=== PATIENT | female | born 2000 | race Hispanic/Latino ===

== ENCOUNTER 2020-07-05 15:33 | Emergency (ER) | payer BC ==
[2020-07-05] MEDS ORDERED: IBUPROFEN 400 MG TAB ONE (16:06)
[2020-07-05] MEDS ORDERED: IBUPROFEN 200 MG TAB PO ONE (16:06)
[2020-07-05 18:34] LABS: Absolute Lymphocytes (CBC) 0.8 K/uL (0.7-4.9); Basophils % 0.4 % (0-1.3); Hematocrit 42.6 % (36.0-45.0); Lymphocytes % 17.5 % (15.3-44.8)
[2020-07-05 18:48] LABS: Albumin 3.8 g/dL (3.4-5.0); Bilirubin Direct 0.3 mg/dL (0-0.2); Bilirubin Total 0.8 mg/dL (0.2-1.0); Potassium 4.1 mmol/L (3.5-5.1); Protein, Total 8.2 g/dL (6.4-8.2)
--- NOTE | 2020-07-05 20:20 | RAD REPORT ---
EXAM DESCRIPTION: US - Transvaginal Study Probe - 07/05/2020 7:36 pm CLINICAL HISTORY: pelvic pain COMPARISON: Pelvis Complete dated 07/05/2020 TECHNIQUE: Endovaginal and transabdominal sonography performed. FINDINGS: Transabdominal and endovaginal sonographic evaluation performed. Findings are incorporated into a single report under the transabdominal examination. IMPRESSION: Please see full findings detailed on the transabdominal study.
--- NOTE | 2020-07-05 20:20 | RAD REPORT ---
EXAM DESCRIPTION: US - Pelvis Complete - 07/05/2020 7:36 pm CLINICAL HISTORY: pelvic pain COMPARISON: Transvaginal Study Probe dated 07/05/2020 TECHNIQUE: Endovaginal and transabdominal sonography studies were performed. Findings are incorporat ed into this single report. FINDINGS: Thickened endometrial stripe is present at 13 mm. This is homogeneous echogenicity with no mass, polyp or focal abnormality seen. The endometrium-myometrium interface is preserved. Uterus is approximately 8.4 x 3.6 x 5.5 cm. No myometrial mass identified. Nabothian cysts are present. No bloo d or fluid seen in the cul de sac. Both ovaries are identifiable. Blood flow is demonstrated in the bilateral ovarian stroma. An 8 centi meter thin-walled cystic mass is present in pelvis near the superior margin of the uterus. This is no t clearly ovarian in origin but may represent a paraovarian cyst. IMPRESSION: Large 8 centimeter thin-walled anechoic cyst probably para ovarian in etiology. Doppler evaluation was able to demonstrate blood flow within each ovary. Thickened endometrium with no endometrial mass or polyp identifiable.
--- NOTE | 2020-07-05 20:35 | EDPHYS ---
Physician Documentation [facility] Name: Renuka Weiner Age: 19 yrs Sex: Female : 2000 Arrival Date: 07/05/2020 Time: 15:37 Bed 24 Private MD: ED Physician Norma Falcon HPI: 07/05 18:08 This 19 yrs old Female presents to ER via Ambulatory with complaints of Groin jmm Pain, Diarrhea, Breathing Difficulty. 18:08 The patient presents with pelvis pain. Onset: The symptoms/episode began/occurred jmm gradually, today. Modifying factors: The symptoms are alleviated by nothing, the symptoms are aggravated by nothing. Associated signs and symptoms: Pertinent positives: diarrhea, fever. The patient has not experienced similar symptoms in the past. This is a 19 year old female with no known chronic medical conditions that presents to the ED with complaints of pelvic pain beginning today. patient states she is currently on her cycle. denies dysuria or vaginal discharge. . 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 - Social history:: Smoking status: Patient denies any tobacco usage or history of. ROS: 18:08 Constitutional: Negative for fever, chills, and weight loss, Cardiovascular: Negative jmm for chest pain, palpitations, and edema, Respiratory: Negative for shortness of breath, cough, wheezing, and pleuritic chest pain. 18:08 Abdomen/GI: Positive for diarrhea. 18:08 : Positive for pelvic pain. 18:08 All other systems are negative. Exam: 18:08 Constitutional: This is a well developed, well nourished patient who is awake, alert, jmm and in no acute distress. Head/Face: atraumatic. Eyes: EOMI, no conjunctival erythema appreciated ENT: Moist Mucus Membranes Neck: Trachea midline, Supple Chest/axilla: Normal chest wall appearance and motion. Cardiovascular: Regular rate and rhythm. No edema appreciated Respiratory: Normal respirations, no respiratory distress appreciated 18:08 Skin: General appearance color normal MS/ Extremity: Moves all extremities, no obvious deformities appreciated, no edema noted to the lower extremities Neuro: Awake and alert, normal gait Psych: Behavior is normal, Mood is normal, Patient is cooperative and pleasant 18:08 Abdomen/GI: Inspection: abdomen appears normal, Bowel sounds: normal, Palpation: soft, mild abdominal tenderness, in the suprapubic area. Vital Signs: 15:43 BP 137 / 74; Pulse 120; Resp 18; Temp 102.1; Pulse Ox 96% on R/A; Weight 117.93 kg; ll1 Height 5 ft. 2 in. (157.48 cm); Pain 3/10; 18:01 Pulse 112; Resp 18; Temp 100.2; Pulse Ox 95% on R/A; ll1 20:56 BP 128 / 74; Pulse 100; Resp 16; Pulse Ox 98% on R/A; iw 15:43 Body Mass Index 47.55 (117.93 kg, 157.48 cm) ll1 MDM: 18:07 Patient medically screened. [facility] 20:32 Data reviewed: vital signs, nurses notes. Counseling: I had a detailed discussion with niecy the patient and/or guardian regarding: the historical points, exam findings, and any diagnostic results supporting the discharge/admit diagnosis, lab results, radiology results, the need for outpatient follow up, to return to the emergency department if symptoms worsen or persist or if there are any questions or concerns that arise at home. ED course: Patient is alert and non toxic in appearance in the ED. US reveals a large ovarian cyst. There is normal blood flow. Patient is encouraged to follow up with obgyn for further care. Patient is otherwise given strict return precautions. patient understood and agrees with the plan of care. . 07/05 18:07 Order name: Basic Metabolic Panel; Complete Time: 18:49 [facility] 07/05 18:07 Order name: CBC with Diff; Complete Time: 18:37 [facility] 07/05 18:07 Order name: Hepatic Function; Complete Time: 18:49 [facility] 07/05 18:07 Order name: Lipase; Complete Time: 18:49 [facility] 07/05 18:07 Order name: IV Saline Lock; Complete Time: 18:32 [facility] 07/05 18:07 Order name: Labs collected and sent; Complete Time: 18:32 [facility] 07/05 18:07 Order name: Urine Dipstick-Ancillary (obtain specimen); Complete Time: 20:24 [facility] 07/05 18:07 Order name: Urine Test (obtain specimen); Complete Time: 20:24 [facility] 07/05 18:08 Order name: US Pelvis Complete; Complete Time: 20:29 [facility] 07/05 18:45 Order name: Transvaginal Study (probe); Complete Time: 20:29 [facility] 07/05 20:06 Order name: Urine Dipstick--Ancillary (enter results) [facility] 07/05 20:06 Order name: Urine --Ancillary (enter results) [facility] 07/05 20:06 Order name: Urine Dipstick-Ancillary EDMS 07/05 20:06 Order name: Urine --Ancillary EDMS Administered Medications: 15:53 Drug: Motrin 600 mg Route: PO; ll1 19:00 Follow up: Response: No adverse reaction iw Disposition: 07/05/20 20:34 Discharged to Home. Impression: Other ovarian cysts. - Condition is Stable. - Discharge Instructions: Ovarian Cyst. - Medication Reconciliation Form, Thank You Letter, Antibiotic Education, Prescription Opioid Use form. - Follow up: Private Physician; When: 2 - 3 days; Reason: Recheck today's complaints, Continuance of care, Re-evaluation by your physician. Addendum: 07/28/2020 02:10 Co-signature as Attending Physician, Norma Falcon MD. m a2 Signatures: Dispatcher [employer] EDMS Good Griffith PA PA jmm Williams, Irene, RN RN Norma Falcon MD MD ma2 Kailey Carlos RN RN 1 Corrections: (The following items were deleted from the chart) 07/05 20:57 20:34 07/05/2020 20:34 Discharged to Home. Impression: Other ovarian cysts. Condition iw is Stable. Forms are Medication Reconciliation Form, Thank You Letter, Antibiotic Education, Prescription Opioid Use. Follow up: Private Physician; When: 2 - 3 days; Reason: Recheck today's complaints, Continuance of care, Re-evaluation by your physician. [facility]
--- NOTE | 2020-07-05 20:35 | ER ---
Nurse's Notes [facility] Name: Renuka Weiner Age: 19 yrs Sex: Female : 2000 Arrival Date: 07/05/2020 Time: 15:37 Bed 24 Private MD: Diagnosis: Other ovarian cysts Presentation: 07/05 15:43 Chief complaint: Patient states: Covid positive since 05/01. SOB with exertion, burning ll1 to airways with cold air, pelvic pain with diarrhea for 1 day. + fever at home, no appetite. Coronavirus screen: Client denies travel out of the [place] in the last 14 days. congestion, cough unrelated to allergies, diarrhea, difficulty breathing, fatigue, fever, headache, muscle pain, nausea, shortness of breath, loss of taste or smell, Client presents with at least one sign or symptom that may indicate coronavirus-19. Standard/surgical mask placed on the client. Ebola Screen: Patient denies travel to an Ebola-affected area in the 21 days before illness onset. Initial Sepsis Screen: Does the patient meet any 2 criteria? Temp <36.0*C (96.8*F)) or > 38.3*C (100.9*F). HR > 90 bpm. Yes Does the patient have a suspected source of infection? Yes: Productive cough/pneumonia. Risk Assessment: Do you want to hurt yourself or someone else? Patient reports no desire to harm self or others. Onset of symptoms was June 29, 2020. 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 - Social history:: Smoking status: Patient denies any tobacco usage or history of. Screenin:56 Abuse screen: Denies threats or abuse. Denies injuries from another. Nutritional iw screening: No deficits noted. Tuberculosis screening: No symptoms or risk factors identified. Fall Risk None identified. Assessment: 18:33 General: Appears in no apparent distress. comfortable, Behavior is calm, cooperative. ec1 Pain: Complains of pain in suprapubic area. Neuro: Level of Consciousness is awake, alert, obeys commands. Cardiovascular: Patient's skin is warm and dry. Respiratory: Airway is patent Respiratory effort is even, unlabored. GI: Reports nausea. : Reports pain in suprapubic area vaginal bleeding that is Denies discharge. EENT: No signs and/or symptoms were reported regarding the EENT system. Derm: No signs and/or symptoms reported regarding the dermatologic system. Musculoskeletal: No signs and/or symptoms reported regarding the musculoskeletal system. 18:39 Reassessment: US tech at bedside performing US. ec1 Vital Signs: 15:43 BP 137 / 74; Pulse 120; Resp 18; Temp 102.1; Pulse Ox 96% on R/A; Weight 117.93 kg; ll1 Height 5 ft. 2 in. (157.48 cm); Pain 3/10; 18:01 Pulse 112; Resp 18; Temp 100.2; Pulse Ox 95% on R/A; ll1 20:56 BP 128 / 74; Pulse 100; Resp 16; Pulse Ox 98% on R/A; iw 15:43 Body Mass Index 47.55 (117.93 kg, 157.48 cm) ll1 ED Course: 15:37 Patient arrived in ED. rg4 15:47 Triage completed. ll1 15:48 Arm band placed on. ll1 17:56 Good Griffith PA is PHCP. jmm 17:56 Norma Falcon MD is Attending Physician. [facility] 17:59 Bed in low position. Call light in reach. Side rails up X 1. Warm blanket given. Verbal jp3 reassurance given. Pulse ox on. NIBP on. 18:00 Rosamaria Cool, RN is Primary Nurse. ec1 18:00 Patient maintains SpO2 saturation greater than 95% on room air. jp3 19:09 Primary Nurse role handed off by Rosamaria Cool RN iw 19:09 Elaine Melton RN is Primary Nurse. iw 19:09 Report given to Elaine Zuñiga RN. ec1 19:36 US Pelvis Complete In Process Unspecified. EDMS 19:36 Transvaginal Study (probe) In Process Unspecified. EDMS 20:56 No provider procedures requiring assistance completed. IV discontinued, intact, iw bleeding controlled, No redness/swelling at site. Pressure dressing applied. Administered Medications: 15:53 Drug: Motrin 600 mg Route: PO; ll1 19:00 Follow up: Response: No adverse reaction iw Outcome: 20:34 Discharge ordered by . niecy 20:56 Discharged to home ambulatory. iw 20:56 Condition: good 20:56 Discharge instructions given to patient, Instructed on discharge instructions, follow up and referral plans. Demonstrated understanding of instructions, follow-up care. 20:57 Patient left the ED. iw Signatures: Dispatcher [employer] EDMS Good Griffith PA PA jmm Williams, Irene, RN RN iw Yee Cannon rg4 Isaac Almaraz jp3 Kailey Carlos RN RN ll1 Rosamaria Cool RN RN ec1
[2020-07-05 21:21] VITALS: TEMP 100.2
[2020-07-05 21:23] VITALS: BP 128/74; O2SAT 98
[2020-07-05 22:44] LABS: Urine Blood 3+ (NEG); Urine Glucose NEGATIVE (NEG); Urine Protein 2+ (NEG); Urine Specific Gravity >1.030 (1.005-1.030); Urine pH 5.5 (5.0-7.0)
== END 2020-07-05 20:57 | disposition home or self-care (01) ==
LOC: ER 15:33
DX: N83.209 Unspecified ovarian cyst, unspecified side (principal)
CPT/HCPCS: 36415; 76830; 76856; 80048; 80076; 81003; 81025; 83690; 85025; 99284

== ENCOUNTER 2020-07-09 00:43 | Inpatient (IN) | payer BC ==
--- OUTSIDE RECORDS SUMMARY | 2020-07-09 00:45 | XMS REPORT | Continuity of Care Document ---
:2000 Author Organization [facility] t Address [address] [place] [address] Care Team Providers Name Role Phone Provider, Urgent Care Attending Clinician Unavailable Problems This patient has no known problems. Allergies, Adverse Reactions, Alerts This patient has no known allergies or adverse reactions. Medications This patient has no known medications. Procedures This patient has no known procedures. Encounters Start End Encounter Admission Attending Care Care Encounter Source Date/Time Date/Time Type Type Clinicians Facility Department ID 2020-07-02 2020-07-02 Urgent Provider, [facility] [id number] 09:39:12 09:59:12 [facility] [id number] [facility] [id number] Vicky [id number] [address] Results This patient has no known results.
[2020-07-09] MEDS ORDERED: ACETAMINOPHEN 500 MG TAB ONE (01:34)
[2020-07-09] MEDS ORDERED: NA CHLORIDE 0.9% 2,000 ML ONE (01:34)
[2020-07-09] MEDS ORDERED: ALBUTEROL INHALER 60 PUFF/8 GM IH ONE (01:38)
[2020-07-09 01:39] LABS: Arterial Blood Carboxyhemoglob 1.4 % (0-1.5); Blood Gas Oxyhemoglobin 91.1 % (94-97); Blood O2 Saturation 93.2 % (92-98.5)
[2020-07-09 01:44] LABS: Absolute Lymphocytes (CBC) 1.2 K/uL (0.7-4.9); Basophils % 0.3 % (0-1.3); Hematocrit 40.5 % (36.0-45.0); Lymphocytes % 16.9 % (15.3-44.8); MPV 9.2 fL (7.6-11.3); RBC Red Blood Cell Count 4.56 M/uL (3.86-4.86)
[2020-07-09 01:48] LABS: Protime INR 1.25
[2020-07-09] MEDS ORDERED: dexAMETHasone 10 MG/ML VIAL ONE (01:50)
[2020-07-09 03:37] LABS: ALT/SGPT 54 U/L (12-78); AST/SGOT 63 U/L (15-37); Albumin 3.3 g/dL (3.4-5.0); Alkaline Phosphatase 37 U/L (45-117); BUN Blood Urea Nitrogen 31 mg/dL (7-18); Bicarbonate 25 mmol/L (21-32); Bilirubin Direct 0.3 mg/dL (0-0.2); Bilirubin Total 0.6 mg/dL (0.2-1.0); Glucose Level 101 mg/dL (74-106); Potassium 4.4 mmol/L (3.5-5.1); Protein, Total 7.9 g/dL (6.4-8.2); Sodium Level 140 mmol/L (136-145); Troponin (Emerg Dept Use Only) < 0.02 ng/mL (0.0-0.045)
[2020-07-09 03:38] LABS: Magnesium 2.5 mg/dL (1.8-2.4); NT PRO-BNP < 5 pg/mL (<125)
--- NOTE | 2020-07-09 03:51 | ER ---
Nurse's Notes [facility] Name: Renuka Weiner Age: 19 yrs Sex: Female : 2000 Arrival Date: 07/09/2020 Time: 00:43 Bed 8 Private MD: Diagnosis: COVID Pneumonia;Hypoxia Presentation: 07/09 01:00 Chief complaint: Patient states: Reports shortness of breath tonight, states oximeter lp1 at home reading 70%; Diagnosed COVID + on 07/02/20; began having symptoms on 06/29/20;. Coronavirus screen: Client reports previous positive COVID test result. Date of collection: July 02, 2020. 01:00 Method Of Arrival: Wheelchair lp1 01:00 Ebola Screen: No symptoms or risks identified at this time. Initial Sepsis Screen: Does lp1 the patient meet any 2 criteria? RR > 20 per min. Temp <36.0*C (96.8*F)) or > 38.3*C (100.9*F). HR > 90 bpm. Yes Does the patient have a suspected source of infection? Yes: Productive cough/pneumonia. Risk Assessment: Do you want to hurt yourself or someone else? Patient reports no desire to harm self or others. Onset of symptoms was July 09, 2020. 01:00 Acuity: LIZABETH 2 lp1 Triage Assessment: 01:42 General: Appears. mg2 01:44 General: Behavior is calm, cooperative. 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 - Social history:: Smoking status: Patient denies any tobacco usage or history of. Screenin:42 Abuse screen: Denies threats or abuse. Denies injuries from another. Nutritional mg2 screening: No deficits noted. Tuberculosis screening: No symptoms or risk factors identified. Fall Risk IV access (20 points). Assessment: 01:12 General: Appears mild resp distress. Pain: Denies pain. Neuro: Level of Consciousness mg2 is awake, alert, obeys commands, Oriented to person, place, time, situation. Cardiovascular: Capillary refill < 3 seconds Patient's skin is warm and dry. Respiratory: Airway is patent Respiratory effort is even, Respiratory pattern is regular, symmetrical, tachypnea. GI: No signs and/or symptoms were reported involving the gastrointestinal system. : No signs and/or symptoms were reported regarding the genitourinary system. EENT: No signs and/or symptoms were reported regarding the EENT system. Derm: Skin is intact, is healthy with good turgor, Skin is pink, warm \T\ dry. normal. Musculoskeletal: Circulation, motion, and sensation intact. Capillary refill < 3 seconds. 01:15 Reassessment: Patient became short of breath while transferring from to [facility] respiratory distress noted, O2 at 59%; Place on NRB at 15L, O2 improvement to 95%, labored breathing improved; RT called for BiPAP per Dr. Dwyer. 01:45 Reassessment: refused for BIPAP, feel anxious. removed BIPAP as per patient, ED rr5 provider aware. 02:39 Reassessment: Patient appears in no apparent distress at this time. Patient is alert, rr5 oriented x 3, equal unlabored respirations, skin warm/dry/pink. Patient states feeling better. Patient states symptoms have improved. 03:54 Reassessment: patient informed by the provider about the plan for admission and she mg2 agreed. 03:56 Reassessment: she had covid test positive done at [facility] last Jul 02, 2020. mg2 04:10 Reassessment: Patient appears in no apparent distress at this time. Patient is alert, rr5 oriented x 3, equal unlabored respirations, skin warm/dry/pink. hospitalist at bedside examining the patient. 05:09 Reassessment: Patient appears in no apparent distress at this time. Patient is alert, rr5 oriented x 3, equal unlabored respirations, skin warm/dry/pink. Patient states symptoms have improved. Vital Signs: 01:00 BP 122 / 71; Pulse 120; Resp 22; Temp 103.1; Pulse Ox 72% on R/A; Weight 117.93 kg (R); lp1 Height 5 ft. 2 in. (157.48 cm); Pain 0/10; 01:10 Pulse Ox 89% on 3 lpm NC; lp1 02:36 BP 118 / 73; Pulse 112; Resp 18; Temp 100; Pulse Ox 98% on CPAP; mg2 03:50 BP 109 / 72; Pulse 96; Resp 18; Temp 99.4; Pulse Ox 97% on 50% CPAP; mg2 05:09 BP 132 / 72; Pulse 100; Resp 20; Temp 98; Pulse Ox 96% on CPAP; rr5 01:00 Body Mass Index 47.55 (117.93 kg, 157.48 cm) lp1 ED Course: 00:43 Patient arrived in ED. bp1 01:15 Patient has correct armband on for positive identification. Placed in gown. Bed in low lp1 position. Call light in reach. bander on. Pulse ox on. NIBP on. Patient placed on droplet and contact precautions with eye protection. 01:17 Johnathon Dwyer MD is Attending Physician. mh7 01:25 First set of blood cultures drawn EKG done, by ED staff, reviewed by Johnathon Dwyer MD. mg2 Inserted saline lock: 20 gauge in left upper arm, using aseptic technique. Blood collected. 01:27 Triage completed. lp1 01:28 Arm band placed on. lp1 01:30 Genaro Womack, FLOWER is Primary Nurse. mg2 01:41 No provider procedures requiring assistance completed. mg2 01:48 XRAY Chest (1 view) In Process Unspecified. EDMS 03:49 Kennedy Perez DO is Hospitalizing Provider. mh7 03:55 Patient admitted, IV remains in place. mg2 07:21 Primary Nurse role handed off by Genaro Womack, FLOWER bp 07:21 Terry Tidwell, FLOWER is Primary Nurse. bp Administered Medications: 01:20 Drug: Tylenol 1000 mg Route: PO; lp1 02:49 Follow up: Response: No adverse reaction mg2 01:20 Drug: NS 0.9% 1000 ml Route: IV; Rate: 1000 ml; Site: left antecubital; lp1 02:50 Follow up: Response: No adverse reaction; IV Status: Completed infusion; IV Intake: mg2 1000ml 01:30 Drug: Albuterol HFA Inhaler 2 puffs Route: Inhalation; mg2 01:31 Drug: Decadron - Dexamethasone 6 mg Route: IVP; Site: left upper arm; mg2 02:30 Follow up: Response: No adverse reaction mg2 02:20 Not Given (Hemodynamic Parameters): NS 0.9% 1000 ml IV at 1000 ml once mg2 03:49 Drug: Rocephin - (cefTRIAXone) 1 grams Route: IVPB; Infused Over: 30 mins; Site: left mg2 upper arm; 04:00 Follow up: Response: No adverse reaction; IV Status: Completed infusion rr5 03:49 Drug: Zithromax 500 mg Route: IVPB; Infused Over: 1 hrs; Site: left upper arm; mg2 04:40 Follow up: Response: No adverse reaction; IV Status: Completed infusion; IV Intake: rr5 250ml Intake: 02:50 IV: 1000ml; Total: 1000ml. mg2 04:40 IV: 250ml; Total: 1250ml. rr5 Outcome: 03:50 Decision to Hospitalize by Provider. 7 05:02 Admitted to ER Hold. Please see [facility] for further documentation. mg2 05:02 Condition: stable 05:02 Instructed on the need for admit, Demonstrated understanding of instructions. 08:34 Patient left the ED. bp Signatures: Dispatcher [employer] EDMS Geneva Burrows RN RN lp1 Terry Tidwell RN RN bp Genaro Womack RN RN mg2 Anthony Garg RN RN rr5 Melania Dee Maurice, MD MD 7
--- NOTE | 2020-07-09 03:51 | EDPHYS ---
Physician Documentation [facility] Name: Renuka Weiner Age: 19 yrs Sex: Female : 2000 Arrival Date: 07/09/2020 Time: 00:43 Bed 8 Private MD: ED Physician Johnathon Dwyer HPI: 07/09 01:30 This 19 yrs old Female presents to ER via Wheelchair with complaints of Low O2.mh7 01:30 The patient has shortness of breath at rest, with light activity. Onset: The mh7 symptoms/episode began/occurred 3 day(s) ago. Duration: The symptoms are continuous, and are steadily getting worse. The patient's shortness of breath is aggravated by coughing, exertion, light activity. Associated signs and symptoms: Pertinent positives: non-productive cough, fever, Pertinent negatives: chest pain, productive cough, diaphoresis, dizziness, hemoptysis, loss of consciousness, nausea, numbness in extremities, visual changes, vomiting. Severity of symptoms: At their worst the symptoms were severe last night, in the emergency department the symptoms are unchanged. Positive COVID test 07/02/20. 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 - Social history:: Smoking status: Patient denies any tobacco usage or history of. ROS: 01:30 Eyes: Negative for injury, pain, redness, and discharge, ENT: Negative for injury, mh7 pain, and discharge, Neck: Negative for injury, pain, and swelling, Cardiovascular: Negative for chest pain, palpitations, and edema, Abdomen/GI: Negative for abdominal pain, nausea, vomiting, diarrhea, and constipation, Back: Negative for injury and pain, : Negative for injury, bleeding, discharge, and swelling, MS/Extremity: Negative for injury and deformity, Skin: Negative for injury, rash, and discoloration, Neuro: Negative for headache, weakness, numbness, tingling, and seizure, Psych: Negative for depression, anxiety, suicide ideation, homicidal ideation, and hallucinations, Allergy/Immunology: Negative for hives, rash, and allergies, Endocrine: Negative for neck swelling, polydipsia, polyuria, polyphagia, and marked weight changes, Hematologic/Lymphatic: Negative for swollen nodes, abnormal bleeding, and unusual bruising. Exam: 01:30 Head/Face: Normocephalic, atraumatic. Eyes: Pupils equal round and reactive to light, mh7 extra-ocular motions intact. Lids and lashes normal. Conjunctiva and sclera are non-icteric and not injected. Cornea within normal limits. Periorbital areas with no swelling, redness, or edema. Neck: Trachea midline, no thyromegaly or masses palpated, and no cervical lymphadenopathy. Supple, full range of motion without nuchal rigidity, or vertebral point tenderness. No Meningismus. Chest/axilla: Normal chest wall appearance and motion. Nontender with no deformity. No lesions are appreciated. 01:30 Abdomen/GI: Soft, non-tender, with normal bowel sounds. No distension or tympany. No guarding or rebound. No evidence of tenderness throughout. Back: No spinal tenderness. No costovertebral tenderness. Full range of motion. Skin: Warm, dry with normal turgor. Normal color with no rashes, no lesions, and no evidence of cellulitis. MS/ Extremity: Pulses equal, no cyanosis. Neurovascular intact. Full, normal range of motion. Neuro: Awake and alert, GCS 15, oriented to person, place, time, and situation. Cranial nerves II-XII grossly intact. Motor strength 5/5 in all extremities. Sensory grossly intact. Cerebellar exam normal. Normal gait. Psych: Awake, alert, with orientation to person, place and time. Behavior, mood, and affect are within normal limits. 01:30 Constitutional: The patient appears alert, awake, obviously ill. 01:30 Cardiovascular: Rate: tachycardic, Rhythm: regular, Pulses: no pulse deficits are appreciated, Heart sounds: normal, normal S1and S2, Edema: is not appreciated, JVD: is not appreciated. 01:30 Respiratory: mild respiratory distress is noted, Respirations: prolonged exhalation, that is mild, tachypnea, that is mild, Breath sounds: decreased breath sounds, that are mild, are located in both bases, rhonchi, that are mild, are scattered, Respiratory rate: 22 Vital Signs: 01:00 BP 122 / 71; Pulse 120; Resp 22; Temp 103.1; Pulse Ox 72% on R/A; Weight 117.93 kg (R); lp1 Height 5 ft. 2 in. (157.48 cm); Pain 0/10; 01:10 Pulse Ox 89% on 3 lpm NC; lp1 02:36 BP 118 / 73; Pulse 112; Resp 18; Temp 100; Pulse Ox 98% on CPAP; mg2 03:50 BP 109 / 72; Pulse 96; Resp 18; Temp 99.4; Pulse Ox 97% on 50% CPAP; mg2 05:09 BP 132 / 72; Pulse 100; Resp 20; Temp 98; Pulse Ox 96% on CPAP; rr5 01:00 Body Mass Index 47.55 (117.93 kg, 157.48 cm) lp1 MDM: 03:47 Differential diagnosis: Anemia Anxiety Reaction asthma, Bronchitis pneumonia, mh7 Pneumothorax Psychogenic pulmonary edema, reactive airway disease. Data reviewed: vital signs, nurses notes, lab test result(s), cardiac enzymes, CBC, electrolytes, EKG, radiologic studies, plain films. Data interpreted: Pulse oximetry: on BiPAP is 100 %. Interpretation: acceptable. Counseling: I had a detailed discussion with the patient and/or guardian regarding: the historical points, exam findings, and any diagnostic results supporting the discharge/admit diagnosis, lab results, radiology results, the need for further work-up and treatment in the hospital. 03:50 Patient medically screened. [facility] 07/09 01:19 Order name: Basic Metabolic Panel [facility] 07/09 01:19 Order name: CBC with Diff [facility] 07/09 01:19 Order name: LFT's [facility] 07/09 01:19 Order name: Magnesium [facility] 07/09 01:19 Order name: NT PRO-BNP; Complete Time: 03:42 [facility] 07/09 01:19 Order name: PT-INR; Complete Time: 01:57 [facility] 07/09 01:19 Order name: Troponin (emerg Dept Use Only); Complete Time: 03:42 [facility] 07/09 01:19 Order name: Arterial Blood Gas; Complete Time: 03:17 [facility] 07/09 01:19 Order name: Blood Culture Adult (2) [facility] 07/09 01:19 Order name: Lactate; Complete Time: 03:06 [facility] 07/09 01:19 Order name: Procalcitonin; Complete Time: 02:33 mh7 07/09 01:19 Order name: Basic Metabolic Panel; Complete Time: 03:42 EDMS 07/09 01:19 Order name: CBC with Automated Diff; Complete Time: 01:57 EDMS 07/09 01:19 Order name: Liver (Hepatic) Function; Complete Time: 03:42 EDMS 07/09 01:19 Order name: Magnesium; Complete Time: 03:42 EDMS 07/09 01:20 Order name: Test, Serum; Complete Time: 02:33 mh7 07/09 03:45 Order name: CRP la1 07/09 03:45 Order name: Ferritin la1 07/09 03:45 Order name: C-Reactive Protein; Complete Time: 04:48 EDMS 07/09 03:45 Order name: Ferritin; Complete Time: 04:48 EDMS 07/09 05:07 Order name: Urinalysis EDMS 07/09 05:07 Order name: Basic Metabolic Panel EDMS 07/09 05:07 Order name: Basic Metabolic Panel EDMS 07/09 05:07 Order name: Basic Metabolic Panel EDMS 07/09 05:07 Order name: Basic Metabolic Panel EDMS 07/09 05:07 Order name: Basic Metabolic Panel EDMS 07/09 05:07 Order name: CBC with Automated Diff EDMS 07/09 05:07 Order name: CBC with Automated Diff EDMS 07/09 05:07 Order name: CBC with Automated Diff EDMS 07/09 05:07 Order name: Magnesium EDMS 07/09 01:19 Order name: XRAY Chest (1 view) 7 07/09 01:19 Order name: EKG; Complete Time: 01:20 7 07/09 05:07 Order name: CONS Physician Consult EDMS 07/09 05:07 Order name: Regular EDMS 07/09 05:07 Order name: Magnesium EDMS 07/09 05:07 Order name: Magnesium EDMS 07/09 05:07 Order name: Magnesium EDMS 07/09 05:07 Order name: Magnesium EDMS 07/09 05:07 Order name: C-Reactive Protein EDMS 07/09 05:08 Order name: C-Reactive Protein EDMS 07/09 05:08 Order name: C-Reactive Protein EDMS 07/09 05:08 Order name: C-Reactive Protein EDMS 07/09 05:08 Order name: C-Reactive Protein EDMS 07/09 05:08 Order name: C-Reactive Protein EDMS 07/09 05:08 Order name: C-Reactive Protein EDMS 07/09 05:08 Order name: C-Reactive Protein EDMS 07/09 05:08 Order name: Ferritin EDMS 07/09 05:08 Order name: Ferritin EDMS 07/09 05:08 Order name: Ferritin EDMS 07/09 05:08 Order name: Ferritin EDMS 07/09 05:08 Order name: Ferritin EDMS 07/09 05:08 Order name: Ferritin EDMS 07/09 05:08 Order name: Ferritin EDMS 07/09 05:08 Order name: Ferritin EDMS 07/09 01:19 Order name: Cardiac monitoring; Complete Time: 01:30 mh7 07/09 01:19 Order name: EKG - Nurse/Tech; Complete Time: 01:30 mh7 07/09 01:19 Order name: IV Saline Lock; Complete Time: 01:30 mh7 07/09 01:19 Order name: Labs collected and sent; Complete Time: 01:30 mh7 07/09 01:19 Order name: O2 Per Protocol; Complete Time: 01:30 mh7 07/09 01:19 Order name: O2 Sat Monitoring; Complete Time: 01:30 mh7 Administered Medications: 01:20 Drug: Tylenol 1000 mg Route: PO; lp1 02:49 Follow up: Response: No adverse reaction mg2 01:20 Drug: NS 0.9% 1000 ml Route: IV; Rate: 1000 ml; Site: left antecubital; lp1 02:50 Follow up: Response: No adverse reaction; IV Status: Completed infusion; IV Intake: mg2 1000ml 01:30 Drug: Albuterol HFA Inhaler 2 puffs Route: Inhalation; mg2 01:31 Drug: Decadron - Dexamethasone 6 mg Route: IVP; Site: left upper arm; mg2 02:30 Follow up: Response: No adverse reaction mg2 02:20 Not Given (Hemodynamic Parameters): NS 0.9% 1000 ml IV at 1000 ml once mg2 03:49 Drug: Rocephin - (cefTRIAXone) 1 grams Route: IVPB; Infused Over: 30 mins; Site: left mg2 upper arm; 04:00 Follow up: Response: No adverse reaction; IV Status: Completed infusion rr5 03:49 Drug: Zithromax 500 mg Route: IVPB; Infused Over: 1 hrs; Site: left upper arm; mg2 04:40 Follow up: Response: No adverse reaction; IV Status: Completed infusion; IV Intake: rr5 250ml Disposition: 07/09/20 03:50 Hospitalization ordered by Kennedy Perez for Inpatient Admission. Preliminary diagnosis are COVID Pneumonia, Hypoxia. - Bed requested for Telemetry/MedSurg (Inpatient). - Status is Inpatient Admission. bp - Condition is Stable. - Problem is new. - Symptoms have improved. Signatures: [facility] Geneva Burrows, RN RN lp1 Mo Wright, CHROME TANNING DRUM OPERATOR-C CHROME TANNING DRUM OPERATOR-Cla1 Janeth Cannon RN RN cg Terry Tidwell RN RN bp Giuliana Barnard Michele, RN RN mg2 Johnathon Dwyer MD MD [facility] Anthony Garg RN rr5 Corrections: (The following items were deleted from the chart) 04:51 03:50 Hospitalization Ordered by Kennedy Perez DO for Inpatient Admission. Preliminary cg diagnosis is COVID Pneumonia; Hypoxia. Bed requested for Telemetry/MedSurg (Inpatient). Status is Inpatient Admission. Condition is Stable. Problem is new. Symptoms have improved. [facility] 05:07 01:45 BiPap ([employer] Only)+[id number] ordered. [facility] EDMS 07:54 04:51 07/09/2020 03:50 Hospitalization Ordered by Kennedy Perez DO for Inpatient eb Admission. Preliminary diagnosis is COVID Pneumonia; Hypoxia. Bed requested for [facility] ER HOLD. Status is Inpatient Admission. Condition is Stable. Problem is new. Symptoms have improved. 08:34 07:54 07/09/2020 03:50 Hospitalization Ordered by Kennedy Perez DO for Inpatient bp Admission. Preliminary diagnosis is COVID Pneumonia; Hypoxia. Bed requested for Telemetry/MedSurg (Inpatient). Status is Inpatient Admission. Condition is Stable. Problem is new. Symptoms have improved.
[2020-07-09] MEDS ORDERED: CEFTRIAXONE/SWI 1gm 1 GM/10 ML SYR ONE (03:57)
[2020-07-09] MEDS ORDERED: NA CHLORIDE 0.9% 250 ML ONE (03:57)
[2020-07-09] MEDS ORDERED: AZITHROMYCIN 500 MG INJ IVPB ONE (03:57)
[2020-07-09 04:24] LABS: C-Reactive Protein 75.8 mg/L (<3.00); Ferritin 710.2 ng/mL (8-388)
--- NOTE | 2020-07-09 05:03 | P.HP ---
Certification for Inpatient Patient admitted to: Inpatient With expected LOS: >2 Midnights Patient will require the following post-hospital care: None Practitioner: I am a practitioner with admitting privileges, knowledge of patient current condition, hospital course, and medical plan of care. Services: Services provided to patient in accordance with Admission requirements found in Title 42 Section 412.3 of the Code of Federal Regulations Patient History Date of Service: 07/09/20 Primary Care Provider: none Reason for admission: COVID pneumonia History of Present Illness: 19-year-old female with no significant chronic medical conditions presents emergency department for shortness of breath. Patient reports testing positive for Maxwell virus on July 02, 2020. Patient reports increasing shortness of breath over the course of the last 6 days. Patient reports rare saturations at home or in the 60s. Upon presentation to the emergency department patient's room air saturation 72%. Workup in the emergency department reveals maxwell virus pneumonia, mild acute kidney injury creatinine 1.33 GFR 51, ferritin 710 CRP 75.8. Pro calcitonin 0.29. ED provider wishes to admit for further evaluation and management. - Past Medical/Surgical History -: none -: none Psychosocial/ Personal History: Unemployed, lives with her family - Family History Family History: Reviewed- Non-Contributory - Social History Smoking Status: Never smoker Alcohol use: No CD- Drugs: No Caffeine use: Yes Place of Residence: Home Review of Systems 10-point ROS is otherwise unremarkable Respiratory: Cough, Dry, Shortness of Breath, SOB with Excertion, Pleuritic Pain Physical Examination - Physical Exam General: Alert, In no apparent distress HEENT: Atraumatic, PERRLA, Mucous membr. moist/pink, EOMI, Sclerae nonicteric Neck: Supple, 2+ carotid pulse no bruit, No LAD, Without JVD or thyroid ab normality Respiratory: Normal air movement, Diminished (Bilaterally) Cardiovascular: Regular rate/rhythm, Normal S1 S2 Gastrointestinal: Normal bowel sounds, No tenderness Musculoskeletal: No tenderness Integumentary: No rashes Neurological: Normal speech, Normal strength at 5/5 x4 extr, Normal tone, Normal affect - Studies Laboratory Data (last 24 hrs) 07/09/20 01:25: PT 14.4 H, INR 1.25 07/09/20 01:25: WBC 7.20 D, Hgb 13.3, Hct 40.5, Plt Count 256 D 07/09/20 01:25: Sodium 140, Potassium 4.4, BUN 31 H, Creatinine 1.33 H, Glucose 101, Magnesium 2.5 H, Total Bilirubin 0.6, AST 63 H, ALT 54, Alkaline Phosphatase 37 L Assessment and Plan - Plan Assessment Acute hypoxic respiratory failure secondary to COVID-19 pneumonia Acute kidney injury Obesity Plan Acute hypoxic respiratory failure secondary to COVID-19 pneumonia: Trend CRP, ferritin levels. Continue with supplemental oxygen as needed. Daily room air saturations. Continue with IV steroids, supplements. Patient considering ivermectin at this time. Anticipate hospitalization greater than 2 days. DVT prophylaxis with Lovenox 40 mg subcutaneous once daily. Pulmonology may prefer to increase this to full-dose anticoagulation. Acute kidney injury: Patient given 1 L normal saline bolus in the ER, continue with 1 bag of NS at 100 cc/hour. Chemistry. Nephrology consult as necessary. Likely prerenal/dehydration. Obesity: Discussed dietary and lifestyle changes. Discharge Plan: Home Plan to discharge in: Greater than 2 days - Advance Directives Does patient have a Living Will: No Does patient have a Durable POA for Healthcare: No - Code Status/Comfort Care Code Status Assessed: Yes (Full code) Critical Care: No Time Spent Managing Pts Care (In Minutes): 55
[2020-07-09] MEDS ORDERED: NA CHLORIDE 0.9% 1,000 ML IV SCH (05:06)
[2020-07-09] MEDS ORDERED: MELATONIN 5 MG TABLET PO PRN (05:06)
[2020-07-09] MEDS ORDERED: ONDANSETRON 4 MG/2 ML VIAL IV PRN (05:06)
[2020-07-09] MEDS ORDERED: BENZONATATE 100 MG CAP PO PRN (05:06)
[2020-07-09] MEDS ORDERED: HYDROCODONE/APAP 5/325 MG TAB PO PRN (05:06)
[2020-07-09] MEDS ORDERED: ACETAMINOPHEN 500 MG TAB PO PRN (05:06)
[2020-07-09 06:13] VITALS: BMI 47.5
[2020-07-09] MEDS: THIAMINE HCL 100 MG TABLET PO SCH (09:33)
[2020-07-09] MEDS: VITAMIN D 1000 UNIT TAB PO SCH (09:33)
[2020-07-09] MEDS: ENOXAPARIN 40 MG/0.4 ML SQ SCH (09:33)
[2020-07-09] MEDS: FAMOTIDINE 20 MG TAB PO SCH ×3 (09:33→21:25)
[2020-07-09] MEDS: ZINC SULFATE 220 MG CAP PO SCH (09:33)
[2020-07-09] MEDS: ASPIRIN EC 81 MG TAB PO SCH (09:33)
[2020-07-09] MEDS: ASCORBIC ACID 500 MG TABLET PO SCH ×4 (09:33→21:24)
[2020-07-09] MEDS ORDERED: INFLUENZA VACCINE (for 3y+) 0.5 ML DOSE IMVAC ONE (10:00)
[2020-07-09] MEDS ORDERED: MELATONIN 5 MG TABLET PO SCH (10:02)
--- NOTE | 2020-07-09 10:02 | P.PN ---
Subjective Date of Service: 07/09/20 Primary Care Provider: none Chief Complaint: COVID pneumonia Subjective: Other (Patient currently on BiPAP 50% FiO2. Patient does not appear in any distress.) Physical Examination - Vital Signs Temperature: 98 F Blood Pressure: 132/72 Pulse: 100 Respirations: 20 - Studies Laboratory Data (last 24 hrs) 07/09/20 01:25: PT 14.4 H, INR 1.25 07/09/20 01:25: WBC 7.20 D, Hgb 13.3, Hct 40.5, Plt Count 256 D 07/09/20 01:25: Sodium 140, Potassium 4.4, BUN 31 H, Creatinine 1.33 H, Glucose 101, Magnesium 2.5 H, Total Bilirubin 0.6, AST 63 H, ALT 54, Alkaline Phosphatase 37 L Assessment & Plan Discharge Plan: Home Plan to discharge in: 48 Hours Physician Review Additional Text: Initial chief complaint: 19-year-old female presents with shortness of breath and recent positive COVID 19 test. Patient found to have acute respiratory failure with hypoxia secondary to bilateral COVID 19 pneumonia. Physical exam: Patient alert, cooperative. No significant distress noted. Heart: Regular rhythm Lungs: Patient does not appear in any distress on BiPAP at 50% FiO2 Abdomen: No distention noted Extremities: Good range of motion to the upper lower extremities. No focal deficits noted. Impression: Acute respiratory failure with hypoxia secondary to bilateral COVID 19 pneumonia Acute renal injury likely mild dehydration Suspect underlying obstructive sleep apnea Obesity, BMI 47.5 Plan: Acute respiratory failure with hypoxia secondary to bilateral COVID 19 pneumonia: Pulmonology consulted. Continue IV Solu-Medrol. Continue vitamin supplementation. Currently on BiPAP at 50% of O2. Respiratory to wean off to nasal cannula. Encourage ambulation, incentive spirometer, and proning. Will arrange for home oxygen at discharge. Continue to monitor ferritin, CRP and lab. DVT prophylaxis in place. Continue aspirin. Anticipate improvement over the next 24-48 hr. I will turn the service over to the hospitalist team tomorrow. I will go plan of care with him. Acute renal injury likely mild dehydration: This appears mild. Encourage oral intake. Discontinue IV fluids. Recheck lab tomorrow. Suspect underlying obstructive sleep apnea: This may need to be further addressed as an outpatient. Await Pulmonology recommendations. Obesity, BMI 47.5: Address lifestyle modification education. Time Spent Managing Pts Care (In Minutes): 55
[2020-07-09] MEDS: METHYLPREDNISOLONE 40 MG INJ IV SCH ×3 (10:25→21:24)
--- NOTE | 2020-07-09 20:13 | RAD REPORT ---
EXAM DESCRIPTION: RAD - Chest Single View - 07/09/2020 1:48 am CLINICAL HISTORY: SOB COMPARISON: None. FINDINGS: Single frontal radiograph view of the chest. Underpenetration. Cardiomediastinal silhouette: Normal size and contour. Lungs: Mild patchy left perihilar opacity. No definite pneumothorax or large effusion. Low lung volum es. Bones: No acute osseous abnormality. Upper abdomen: No abnormality identified. IMPRESSION: 1. Mild patchy left perihilar opacity may represent developing pneumonic process. Electronically signed by: Ryan Brewer 07/09/2020 2:07 AM AGRICULTURAL ECONOMICS TEACHER Due to temporary technical issues with the PACS/Fluency reporting system, reports are being signed by the in house radiologists without review as a courtesy to insure prompt reporting. The interpreting radiologist is fully responsible for the content of the report.
[2020-07-10 04:32] LABS: Absolute Lymphocytes (CBC) 0.9 K/uL (0.7-4.9); Basophils % 0.1 % (0-1.3); Hematocrit 35.2 % (36.0-45.0); Lymphocytes % 13.4 % (15.3-44.8); MPV 9.1 fL (7.6-11.3); RBC Red Blood Cell Count 3.98 M/uL (3.86-4.86)
[2020-07-10 04:59] LABS: BUN Blood Urea Nitrogen 26 mg/dL (7-18); Bicarbonate 25 mmol/L (21-32); Ferritin 572.4 ng/mL (8-388); Glucose Level 124 mg/dL (74-106); Magnesium 2.7 mg/dL (1.8-2.4); Potassium 4.2 mmol/L (3.5-5.1); Sodium Level 144 mmol/L (136-145)
[2020-07-10] MEDS: ASPIRIN EC 81 MG TAB PO SCH (07:56)
[2020-07-10] MEDS: ZINC SULFATE 220 MG CAP PO SCH (07:57)
[2020-07-10] MEDS: THIAMINE HCL 100 MG TABLET PO SCH (07:57)
[2020-07-10] MEDS: ASCORBIC ACID 500 MG TABLET PO SCH ×4 (07:57→23:01)
[2020-07-10] MEDS: VITAMIN D 1000 UNIT TAB PO SCH (07:57)
[2020-07-10] MEDS: ENOXAPARIN 40 MG/0.4 ML SQ SCH (07:57)
[2020-07-10] MEDS: METHYLPREDNISOLONE 40 MG INJ IV SCH ×3 (08:05→23:01)
--- NOTE | 2020-07-10 08:47 | P.PN ---
Subjective Date of Service: 07/10/20 Primary Care Provider: none Chief Complaint: COVID pneumonia Subjective: Improving, Doing well Physical Examination - Vital Signs Temperature: 97.0 F Blood Pressure: 113/61 Pulse: 93 Respirations: 20 Pulse Ox (%): 91 Assessment & Plan Discharge Plan: Home Plan to discharge in: 24 Hours Physician Review Additional Text: Initial chief complaint: 19-year-old female presents with shortness of breath and recent positive COVID 19 test. Patient found to have acute respiratory failure with hypoxia secondary to bilateral COVID 19 pneumonia. Physical exam: Patient alert, cooperative. No significant distress noted. Heart: Regular rhythm Lungs: No significant distress noted, patient on 5 L per nasal cannula. Abdomen: No distention noted Extremities: Good range of motion to the upper lower extremities. No focal deficits noted. Impression: Acute respiratory failure with hypoxia secondary to bilateral COVID 19 pneumonia Acute renal injury likely mild dehydration Suspect underlying obstructive sleep apnea Obesity, BMI 47.5 Plan: Acute respiratory failure with hypoxia secondary to bilateral COVID 19 pneumonia: Pulmonology consulted. Continue IV Solu-Medrol. Continue vitamin supplementation. Patient currently on 5 L per nasal cannula. Will have respiratory wean down nasal cannula. If patient able the tolerate ambulation without significant desaturations and requires less than 4 L then will discharge home with home oxygen. Home oxygen currently being arranged by [employer] school social [employer] teacher. Will reassess later for possible discharge. Encourage ambulation, incentive spirometer, and proning. Will arrange for home oxygen at discharge. Continue to monitor ferritin, CRP and lab. DVT prophylaxis in place. Continue aspirin. Anticipate improvement over the next 24-48 hr. I will turn the service over to the hospitalist team tomorrow. I will go plan of care with him. Acute renal injury likely mild dehydration: Overall stable. Much improved. Suspect underlying obstructive sleep apnea: This may need to be further addressed as an outpatient. Await Pulmonology recommendations. Obesity, BMI 47.5: Address lifestyle modification education. Time Spent Managing Pts Care (In Minutes): 55
--- NOTE | 2020-07-10 12:24 | P.CNS ---
Date of Consult: 07/10/20 Reason for Consult: Respiratory failure Primary Care Provider: none Chief Complaint: COVID pneumonia History of Present Illness: Patient is 19 years of age admitted with progressive dyspnea diagnosed with cristina virus infection July 02 as doing better was 6 L of oxygen able to maintain sat above 90% patient is morbidly obese Allergies No Known Allergies Allergy (Unverified 07/09/20 05:06) Home Medications: NK [No Home Meds] 07/09/20 - Past Medical/Surgical History -: none -: none Psychosocial/ Personal History: Unemployed, lives with her family - Social History Alcohol use: No CD- Drugs: No Caffeine use: Yes Place of Residence: Home Review of Systems General: Weakness Respiratory: Shortness of Breath Physical Examination Temp Pulse Resp BP Pulse Ox 97.0 F 93 H 20 113/61 91 07/10/20 08:47 07/10/20 08:47 07/10/20 08:47 07/10/20 08:47 07/10/20 08:47 General: Alert, In no apparent distress, Oriented x3 Respiratory: Clear to auscultation bilaterally Cardiovascular: No edema, Normal S1 S2 - Problems (1) Acute respiratory failure due to severe acute respiratory syndrome coronavirus 2 (SARS-CoV-2) infection Current Visit: Yes Status: Acute Plan: Patient is 19 years of age admitted with cristina virus pneumonia she is doing better continue with steroids ivermectin titrate sat to 90% possible discharge tomorrow labs reviewed chest x-ray consistent with cristina virus pneumonia
[2020-07-10] MEDS ORDERED: IVERMECTIN 3 MG TABLET PO ONE (12:30)
[2020-07-10 22:10] VITALS: O2SAT 92
[2020-07-10] MEDS: FAMOTIDINE 20 MG TAB PO SCH (23:00)
[2020-07-11 04:10] LABS: Absolute Lymphocytes (CBC) 1.1 K/uL (0.7-4.9); Basophils % 0.1 % (0-1.3); Hematocrit 35.7 % (36.0-45.0); Lymphocytes % 9.5 % (15.3-44.8); RBC Red Blood Cell Count 4.05 M/uL (3.86-4.86)
[2020-07-11 04:25] LABS: BUN Blood Urea Nitrogen 29 mg/dL (7-18); Bicarbonate 25 mmol/L (21-32); Ferritin 410.1 ng/mL (8-388); Glucose Level 140 mg/dL (74-106); Magnesium 2.9 mg/dL (1.8-2.4); Potassium 4.2 mmol/L (3.5-5.1); Sodium Level 144 mmol/L (136-145)
[2020-07-11] MEDS: METHYLPREDNISOLONE 40 MG INJ IV SCH ×2 (08:29→13:17)
[2020-07-11] MEDS: ASCORBIC ACID 500 MG TABLET PO SCH ×2 (08:30→13:18)
[2020-07-11] MEDS: VITAMIN D 1000 UNIT TAB PO SCH (08:30)
[2020-07-11] MEDS: ZINC SULFATE 220 MG CAP PO SCH (08:30)
[2020-07-11] MEDS: FAMOTIDINE 20 MG TAB PO SCH (08:30)
[2020-07-11] MEDS: THIAMINE HCL 100 MG TABLET PO SCH (08:30)
[2020-07-11] MEDS: ASPIRIN EC 81 MG TAB PO SCH (08:30)
--- NOTE | 2020-07-11 10:50 | P.DS ---
Discharge Date: 07/11/20 Primary Care Provider: none Disposition: ROUTINE DISCHARGE Discharge Condition: GOOD Reason for Admission: COVID pneumonia Consultations: pulmonology and social work - Problems (1) COVID-19 Onset Date: ~07/02/20 Current Visit: Yes Status: Acute (2) Acute respiratory failure due to severe acute respiratory syndrome coronavirus 2 (SARS-CoV-2) infection Onset Date: ~07/09/20 Current Visit: Yes Status: Resolved (3) Acute renal injury due to hypovolemia Onset Date: ~07/09/20 Current Visit: Yes Status: Resolved (4) Obesity, morbid, BMI 40.0-49.9 Current Visit: Yes Status: Chronic Brief History of Present Illness: Ms. Weiner is a 19-year-old female with no PMHx who presented to the ED with 6 days of increased SOB on 07/09/20 after positive COVID diagnosis on 07/02/20. In the ED, patients O2 saturation on room air was 72%. CXR was consistent with pneumonia findings. Additional findings on admission include mild acute kidney injury with creatinine 1.33 and GFR 51. Ferritin 710, CRP 75.8. Pro-calcitonin 0.29. Hospital Course: Acute respiratory failure with hypoxia secondary to bilateral COVID 19 pneumonia CRP and ferritin levels were trended. Ferritin of 410 today, down from 710 on admission. CRP 11.3 today, down from 75.8 on admission. Patient was initially on BiPAP 50% FiO2 and was weaned off by respiratory, now saturating at 97% on 4L nasal cannula and able to ambulate without marked desaturations. Patient was given IV Solu-Medrol, ivermectin, and vitamin C, D and zinc. DVT prophylaxis with lovenox 40mg subQ once daily. Pulmonology was consulted and agreed with discharge plan. Home oxygen has been arranged. Patient reports she feels much better today than on initial presentation, and feels ready to go home. Discussed discharge plan with patient. Acute renal injury likely mild dehydration Patient was given 1L normal saline bolus in the ER. Continued with 1 bag of NS at 100cc/hr. GFR now >90, resolved from 51. IVF discontinued. Oral intake encouraged. Obesity, BMI 47.5 Discussed dietary and lifestyle changes. Vital Signs/Physical Exam: Temp Pulse Resp BP Pulse Ox 97.2 F 84 31 H 131/78 92 07/11/20 08:00 02/23/21 08:00 07/11/20 08:00 07/11/20 08:00 07/11/20 08:00 Laboratory Data at Discharge: WBC 11.20 K/uL (4.3-10.9) H D 07/11/20 03:01 Hgb 11.9 g/dL (12.0-15.0) L 07/11/20 03:01 Hct 35.7 % (36.0-45.0) L 07/11/20 03:01 Plt Count 426 K/uL (152-406) H D 07/11/20 03:01 PT 14.4 SECONDS (9.5-12.5) H 07/09/20 01:25 INR 1.25 07/09/20 01:25 Sodium 144 mmol/L (136-145) 07/11/20 03:01 Potassium 4.2 mmol/L (3.5-5.1) 07/11/20 03:01 BUN 29 mg/dL (7-18) H 07/11/20 03:01 Creatinine 0.77 mg/dL (0.55-1.3) 07/11/20 03:01 Glucose 140 mg/dL (74-106) H 07/11/20 03:01 Magnesium 2.9 mg/dL (1.8-2.4) H 07/11/20 03:01 Total Bilirubin 0.6 mg/dL (0.2-1.0) 07/09/20 01:25 AST 63 U/L (15-37) H 07/09/20 01:25 ALT 54 U/L (12-78) 07/09/20 01:25 Alkaline Phosphatase 37 U/L (45-117) L 07/09/20 01:25 Home Medications: Albuterol Inhaler [Ventolin Inhaler*] 2 puff IH Q6H PRN #1 hfa.aer.ad 07/11/20 Ascorbic Acid [Vitamin C*] 500 mg PO QID #60 tablet 07/11/20 Benzonatate [Tessalon Perle*] 100 mg PO TID PRN #30 cap 07/11/20 Cholecalciferol (Vitamin D3) [Vitamin D 1000 Iu Tab*] 4,000 unit PO DAILY #60 tab 07/11/20 Famotidine [Pepcid*] 40 mg PO BID #60 tab 07/11/20 Ivermectin 12 mg PO DAILY 3 Days #12 tablet 07/11/20 Melatonin 5 mg PO BEDTIME PRN #20 tablet 07/11/20 Thiamine HCl [Vitamin B-1*] 200 mg PO DAILY #30 tablet 07/11/20 Zinc Sulfate [Zinc Sulfate*] 220 mg PO DAILY #30 cap 07/11/20 predniSONE [Deltasone] 20 mg PO BID #21 tab 07/11/20 New Medications: Ivermectin 12 mg PO DAILY 3 Days #12 tablet Melatonin 5 mg PO BEDTIME PRN #20 tablet Famotidine [Pepcid*] 40 mg PO BID #60 tab predniSONE [Deltasone] 20 mg PO BID #21 tab Benzonatate [Tessalon Perle*] 100 mg PO TID PRN #30 cap PRN Reason: Cough Albuterol Inhaler [Ventolin Inhaler*] 2 puff IH Q6H PRN #1 hfa.aer.ad PRN Reason: Shortness Of Breath Thiamine HCl [Vitamin B-1*] 200 mg PO DAILY #30 tablet Ascorbic Acid [Vitamin C*] 500 mg PO QID #60 tablet Cholecalciferol (Vitamin D3) [Vitamin D 1000 Iu Tab*] 4,000 unit PO DAILY #60 tab Zinc Sulfate [Zinc Sulfate*] 220 mg PO DAILY #30 cap Physician Discharge Instructions: OK TO DC IV AND DC HOME once home oxygen is arranged FOLLOW-UP WITH PRIMARY CARE PROVIDER IN 1-2 WEEKS FOLLOW-UP WITH Pulmonary IN 1-2 WEEKS RETURN TO THE ER IF symptoms worsen CALL or TEXT DR. HOFFMAN AT [phone] IF ANY QUESTIONS REGARDING HOSPITAL STAY. PLEASE CALL THE FLOOR AT [phone] IF ANY MEDICATION OR NURSING QUESTIONS. Diet: Regular Activity: Fall precautions Followup: NONE,NONE [Primary Care Provider] -
[2020-07-11 12:59] VITALS: BP 114/58; TEMP 97.4
== END 2020-07-11 15:00 | disposition home or self-care (01) | DRG 177 ==
LOC: ER 00:43 → ERHOLD 04:40 → 4TH 08:21
PROVIDERS: ADMIT Family Medicine; ATTEND Hospitalist
DX: U07.1 COVID-19 (principal); J12.82 Pneumonia due to coronavirus disease 2019; J96.01 Acute respiratory failure with hypoxia; N17.9 Acute kidney failure, unspecified; Z68.42 Body mass index [BMI] 45.0-49.9, adult; E66.9 Obesity, unspecified; E86.1 Hypovolemia; E86.0 Dehydration; Z79.52 Long term (current) use of systemic steroids; Z79.899 Other long term (current) drug therapy; Z56.0 Unemployment, unspecified
CPT/HCPCS: 36415; 71045; 80048; 80076; 82728; 82805; 83605; 83735; 83880; 84145; 84484; 84703; 85025; 85610; 86140; 87040; 94010; 94660; 96361; 96365; 96375; 99285; J0456; J0696; J1100; J1650; J2920; J7030; J7050

== ENCOUNTER 2021-05-29 07:38 | Emergency (ER) | payer BC ==
--- OUTSIDE RECORDS SUMMARY | 2021-05-29 07:39 | XMS REPORT | Continuity of Care Document ---
:2000 Author Organization [facility] t Address [address] [place] [id number] Care Team Providers Name Role Phone Pcp, Does Not Have A Primary Care Physician Provider, Urgent Care Attending Clinician Unavailable Robi Schmitz MD Attending Clinician Robi SCHMITZ Attending Clinician Unavailable TUNG Attending Clinician Unavailable Lab, Fam Pob I Attending Clinician Unavailable Tung [employer] DEAN Attending Clinician ANESALONI Attending Clinician Unavailable Payers Payer Name Policy Type Policy Number Effective Date Expiration Date S ource Problems Condition Condition Condition Status Onset Resolution Last Treating Co mments Source Name Details Category Date Date Treatment Clinician Date No known No known Disease Unive rs active active ity of problems problems [facility] Allergies, Adverse Reactions, Alerts Allergy Allergy Status Severity Reaction(s) Onset Inactive Treating Comm ents Source Name Type Date Date Clinician NO KNOWN Drug Active Univers ALLERGIE Class ity of S [facility] Social History Social Habit Start Date Stop Date Quantity Comments Source Exposure to Not sure [facility] SARS-CoV-2 (event) Medica l Branch Tobacco use and 2020-07-02 2020-07-02 Never used [facility] exposure 00:00:00 00:00:00 [facility] Sex Assigned At 2000 2000 [facility] 00:00:00 00:00:00 [facility] Smoking Status Start Date Stop Date Source Never smoker [facility] Medications Ordered Filled Start Stop Current Ordering Indication Dosage Frequency Signature Comments Components Source Medication Medication Date Date Medication? Clinician (SIG) Name Name ethinyl Yes Take by Univer s estradiol/d 7-03 mouth. ity of rospirenone 15:19: [place] (DROSPIRENO 54 Medical NE-ETHINYL Branch ESTRADIOL ORAL) ethinyl Yes Take by Univer s estradiol/d 7-03 mouth. ity of rospirenone 15:19: [place] (DROSPIRENO 54 Medical NE-ETHINYL Branch ESTRADIOL ORAL) bromphenira Yes [id number] 5mL Take 5 mL Univers mine-pseudo 7-03 by mouth 2 it y of ephedrine-D 00:00: (two) [place] (BROMFED 00 times Medical DM) 2-30-10 daily. Branch mg/5 mL syrup fluticasone Yes [id number] 1{spray Use 1 Univers propionate 7-03 } [place] in ity o f 50 00:00: each [place] mcg/actuati 00 nostril Medic al on nasal daily. Branch spray bromphenira Yes [id number] 5mL Take 5 mL Univers mine-pseudo 7-03 by mouth 2 it y of ephedrine-D 00:00: (two) [place] (BROMFED 00 times Medical DM) 2-30-10 daily. Branch mg/5 mL syrup fluticasone Yes [id number] 1{spray Use 1 Univers propionate 7-03 } [place] in ity o f 50 00:00: each [place] mcg/actuati 00 nostril Medic al on nasal daily. Branch spray No known No Univers medications [facility] No known No Univers medications [facility] Vital Signs Vital Name Observation Time Observation Value Comments Source Systolic blood 2020-11-18 19:58:00 155 mm[Hg] [facility] [place] Diastolic blood 2020-11-18 19:58:00 104 mm[Hg] [facility] Heart rate 2020-11-18 19:55:00 98 /min [facility] Body temperature 2020-11-18 19:55:00 37.22 Pushpa [facility] Respiratory rate 2020-11-18 19:55:00 16 /min [facility] Body height 2020-11-18 19:55:00 157.5 cm [facility] [place] [facility] Body weight 2020-11-18 19:55:00 145.151 kg [facility] [place] [facility] BMI 2020-11-18 19:55:00 58.53 kg/m2 [facility] [place] [facility] Oxygen saturation in 2020-11-18 19:55:00 98 /min University of Arterial blood by [place] [facility] halley Pulse oximetry Branch Respiratory rate 2020-07-02 15:45:00 18 /min [facility] [place] [facility] Body height 2020-07-02 15:45:00 157.5 cm [facility] [place] [facility] Body weight 2020-07-02 15:45:00 113.399 kg [facility] [place] [facility] BMI 2020-07-02 15:45:00 45.73 kg/m2 [facility] [place] [facility] Oxygen saturation in 2020-07-02 15:45:00 96 /min University of Arterial blood by [place] [facility] halley Pulse oximetry Branch Systolic blood 2020-07-02 15:45:00 118 mm[Hg] Univer sity of pressure [place] [facility] Diastolic blood 2020-07-02 15:45:00 78 mm[Hg] Unive rsity of pressure [place] [facility] Heart rate 2020-07-02 15:45:00 122 /min [facility] [place] [facility] Body temperature 2020-07-02 15:45:00 37.78 Pushpa [facility] [place] [facility] Respiratory rate 2020-07-02 15:45:00 18 /min [facility] [place] [facility] Body height 2020-07-02 15:45:00 157.5 cm [facility] [place] [facility] Body weight 2020-07-02 15:45:00 113.399 kg [facility] [place] [facility] BMI 2020-07-02 15:45:00 45.73 kg/m2 [facility] [place] [facility] Oxygen saturation in 2020-07-02 15:45:00 96 /min University of Arterial blood by [place] [facility] [facility] Pulse oximetry Branch Systolic blood 2020-07-02 15:45:00 118 mm[Hg] Univer sity of pressure [place] [facility] Diastolic blood 2020-07-02 15:45:00 78 mm[Hg] Unive rsity of pressure [facility] Heart rate 2020-07-02 15:45:00 122 /min [facility] Body temperature 2020-07-02 15:45:00 37.78 Pushpa [facility] Procedures Procedure Date / Time Performing Clinician Source Performed COVID-19 (MOLECULAR 2020-11-18 20:13:00 Arnulfo Schmitz [facility] TESTING [facility] NUCLEIC ACID AMPLIFICATION) LAB ONLY COVID 2020-11-18 20:13:00 Arnulfo Schmitz [place] [facility] [place] INTERPRETATION [facility] POCT FLU A AND B 2020-07-02 00:00:00 Teri Vargas [facility] (MOLECULAR) [facility] Encounters Start End Encounter Admission Attending Care Care Encounter Source Date/Time Date/Time Type Type Clinicians Facility Department ID 2020-11-18 2020-11-18 Urgent Provider, [facility] Urgent Care [facility] [id number] Univers 14:47:26 18:10:[address] [facility] [id number] paul [facility] [id number] [place] as Professio [phone] Mi [place]ical [place] [address] [address] 2020-11-18 2020-11-18 Outpatient [facility] [id number] Univers 15:00:00 15:00:00 [id number] [facility] 2020-11-18 2020-11-18 Outpatient Latanya SCHMITZ [facility] [id number] Univers 15:00:00 15:00:00 ARNULFO [facility] 2020-08-19 2020-08-19 Outpatient [facility] [id number] Univers 13:40:00 13:40:00 [id number] [facility] 2020-08-19 2020-08-19 Outpatient R TUNG [facility] [id number] Univers 13:40:00 13:40:00 [facility] 2020-08-19 2020-08-19 Laboratory Lab, Adc Fam Pob I [facility] [id number] Univers 13:11:50 13:31:[address] [facility] [id number] [facility] [id number] [place] Professio [phone] [address] Office [address] 2020-07-02 2020-07-02 Outpatient [facility] [id number] Univers 13:40:00 13:40:00 [id number] [facility] 2020-07-02 2020-07-02 Outpatient R AINSLEY [facility] [id number] Univers 13:40:00 13:40:00 ARNULFO [facility] 2020-07-02 2020-07-02 Urgent Provider, [facility] [id number] 09:39:12 09:59:12 [facility] [id number] Care [place] [id number] Professio [phone] [place] [address] [address] 2020-07-02 2020-07-02 Urgent Provider, [facility] [id number] Univers 09:39:12 09:59:12 [id number] [id number] [place] Professio [id number] [address] Office [address] 2020-07-02 2020-07-02 Outpatient R TUNG [facility] [id number] Univers 09:40:00 09:40:00 TERI [facility] 2020-06-26 2020-06-26 Outpatient R JIGNA [facility] [id number] Univers 11:00:00 11:00:00 MIKKI [facility] Results Test Description Test Time Test Comments Results Result Comments Source POCT FLU A AND B (MOLECULAR) 2020-07-02 16:40:00 Test Item Value Reference Range Interpretation Comme nts POCT INFLUENZA A (test code = 3840) negative Negative - Negativ e POCT INFLUENZA B (test code = 3841) negative Negative - Negativ e [facility]
[2021-05-29 09:26] LABS: Urine Blood Negative (Negative); Urine Glucose Negative (Negative); Urine Protein Negative (Negative); Urine Specific Gravity 1.025 (1.005-1.030); Urine pH 5.5 (5.0-7.0)
[2021-05-29 09:34] LABS: SARS-COV-2 RT PCR NEGATIVE (NEGATIVE)
--- NOTE | 2021-05-29 10:03 | ER ---
Nurse's Notes [facility] Name: Renuka Weiner Age: 20 yrs Sex: Female : 2000 Arrival Date: 05/29/2021 Time: 07:42 Bed Waiting Private MD: Diagnosis: Acute upper respiratory infection, unspecified;Nausea Presentation: 05/29 08:00 Chief complaint: Patient states: Cough, congestion, nausea, weak since Friday. Fever ll1 100 at home. Coronavirus screen: Vaccine status: Patient reports being unvaccinated. Client denies travel out of the [place] in the last 14 days. congestion, cough unrelated to allergies, fatigue, fever, headache, nausea, runny nose, Client presents with at least one sign or symptom that may indicate coronavirus-19. Standard/surgical mask placed on the client. Ebola Screen: Patient denies travel to an Ebola-affected area in the 21 days before illness onset. Resp Distress? No respiratory distress is noted at this time. Initial Sepsis Screen: Does the patient meet any 2 criteria? HR > 90 bpm. No. Patient's initial sepsis screen is negative. Does the patient have a suspected source of infection? No. Patient's initial sepsis screen is negative. Risk Assessment: Do you want to hurt yourself or someone else? Patient reports no desire to harm self or others. Onset of symptoms was May 26, 2021. 08:00 Method Of Arrival: Ambulatory ll1 08:00 Acuity: LIZABETH 4 ll1 Triage Assessment: 08:00 General: Appears ill, Behavior is calm, cooperative, appropriate for age. Pain: Denies ll1 pain. EENT: Reports nasal congestion. Respiratory: Reports cough that is the patient has mild shortness of breath. 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 Flu vaccine is not up to date. - Social history:: Smoking status: Patient denies any tobacco usage or history of. Screenin:32 Abuse screen: Denies threats or abuse. Nutritional screening: No deficits noted. ll1 Tuberculosis screening: No symptoms or risk factors identified. Fall Risk Total Hewitt Fall Scale indicates No Risk (0-24 pts). Assessment: 09:00 Reassessment: No changes from previously documented assessment. Patient and/or family ll1 updated on plan of care and expected duration. Pain level reassessed. Patient is alert, oriented x 3, equal unlabored respirations, skin warm/dry/pink. Cardiovascular: No deficits noted. Patient's skin is warm and dry. Respiratory: Airway is patent Trachea midline Respiratory effort is even, unlabored, Respiratory pattern is regular, symmetrical, Breath sounds are clear bilaterally. 10:00 Reassessment: No changes from previously documented assessment. Patient and/or family ll1 updated on plan of care and expected duration. Pain level reassessed. Patient is alert, oriented x 3, equal unlabored respirations, skin warm/dry/pink. Vital Signs: 08:00 BP 168 / 87; Pulse 106; Resp 17; Temp 98.8; Pulse Ox 98% on R/A; Weight 131.54 kg; ll1 Height 5 ft. 2 in. (157.48 cm); Pain 0/10; 10:15 BP 107 / 66; Pulse 80; Resp 16; Pulse Ox 98% ; ll1 08:00 Body Mass Index 53.04 (131.54 kg, 157.48 cm) ll1 ED Course: 07:42 Patient arrived in ED. ds1 07:59 Arm band placed on. ll1 08:02 Triage completed. ll1 08:32 Patient has correct armband on for positive identification. Call light in reach. Side ll1 rails up X 1. Cardiac monitoring not applicable on this patient. 09:12 Mik Miller PA is PHCP. jr8 09:12 Jared Burris MD is Attending Physician. jr8 09:16 No provider procedures requiring assistance completed. Patient did not have IV access ll1 during this emergency room visit. 09:19 Kailey Carlos, FLOWER is Primary Nurse. ll1 Administered Medications: No medications were administered Outcome: 10:02 Discharge ordered by . jr8 10:17 Patient left the ED. ll1 10:17 Discharged to home ambulatory. ll1 10:17 Condition: stable 10:17 Discharge instructions given to patient, Instructed on discharge instructions, follow up and referral plans. medication usage, Demonstrated understanding of instructions, follow-up care, medications, Prescriptions given X 2. Signatures: Megan Dyson ds1 Mik Miller PA PA jr8 Kailey Carlos, RN RN ll1
--- NOTE | 2021-05-29 10:03 | EDPHYS ---
Physician Documentation [facility] Name: Renuka Weinre Age: 20 yrs Sex: Female : 2000 Arrival Date: 05/29/2021 Time: 07:42 Bed Waiting Private MD: ED Physician Jared Burris HPI: 05/29 09:59 This 20 yrs old Female presents to ER via Ambulatory with complaints of Cough, jr8 Congestion, Nausea. 09:59 The patient or guardian reports cough, that is intermittent, described as mild, with no jr8 sputum. Onset: The symptoms/episode began/occurred gradually, 1 week(s) ago. Severity of symptoms: At their worst the symptoms were mild, in the emergency department the symptoms have improved. Modifying factors: The symptoms are alleviated by nothing, the symptoms are aggravated by nothing. Associated signs and symptoms: Pertinent positives: nausea, congestion. The patient has not experienced similar symptoms in the past. The patient has not recently seen a physician. Patient stated that she has had cough and congestion for 1 week. Cough is almost completely resolved but still complains of congestion and mild nausea. Had fever last night.. 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 Flu vaccine is not up to date. - Social history:: Smoking status: Patient denies any tobacco usage or history of. ROS: 09:59 Eyes: Negative for injury, pain, redness, and discharge, Neck: Negative for injury, jr8 pain, and swelling, Cardiovascular: Negative for chest pain, palpitations, and edema, Abdomen/GI: Negative for abdominal pain, nausea, vomiting, diarrhea, and constipation, Back: Negative for injury and pain, MS/Extremity: Negative for injury and deformity, Skin: Negative for injury, rash, and discoloration, Neuro: Negative for headache, weakness, numbness, tingling, and seizure. 09:59 ENT: Positive for rhinorrhea, sinus congestion, Negative for drainage from ear(s), ear pain, sore throat. 09:59 Respiratory: Positive for cough, Negative for shortness of breath, sputum production, wheezing. 09:59 Abdomen/GI: Positive for nausea, Negative for abdominal pain, vomiting, diarrhea. Exam: 09:59 Constitutional: This is a well developed, well nourished patient who is awake, alert, jr8 and in no acute distress. ENT: Nares patent. No nasal discharge, no septal abnormalities noted. Tympanic membranes are normal and external auditory canals are clear. Oropharynx with no redness, swelling, or masses, exudates, or evidence of obstruction, uvula midline. Mucous membranes moist. Neck: Trachea midline, no thyromegaly or masses palpated, and no cervical lymphadenopathy. Supple, full range of motion without nuchal rigidity, or vertebral point tenderness. No Meningismus. Cardiovascular: Regular rate and rhythm with a normal S1 and S2. No gallops, murmurs, or rubs. Normal PMI, no JVD. No pulse deficits. Respiratory: Lungs have equal breath sounds bilaterally, clear to auscultation and percussion. No rales, rhonchi or wheezes noted. No increased work of breathing, no retractions or nasal flaring. Abdomen/GI: Soft, non-tender, with normal bowel sounds. No distension or tympany. No guarding or rebound. No evidence of tenderness throughout. Back: No spinal tenderness. No costovertebral tenderness. Full range of motion. Skin: Warm, dry with normal turgor. Normal color with no rashes, no lesions, and no evidence of cellulitis. MS/ Extremity: Pulses equal, no cyanosis. Neurovascular intact. Full, normal range of motion. Neuro: Awake and alert, GCS 15, oriented to person, place, time, and situation. Cranial nerves II-XII grossly intact. Motor strength 5/5 in all extremities. Sensory grossly intact. Vital Signs: 08:00 BP 168 / 87; Pulse 106; Resp 17; Temp 98.8; Pulse Ox 98% on R/A; Weight 131.54 kg; ll1 Height 5 ft. 2 in. (157.48 cm); Pain 0/10; 10:15 BP 107 / 66; Pulse 80; Resp 16; Pulse Ox 98% ; ll1 08:00 Body Mass Index 53.04 (131.54 kg, 157.48 cm) ll1 MDM: 09:12 Patient medically screened. [facility] 09:59 Data reviewed: vital signs, nurses notes, lab test result(s), and as a result, I will jr8 discharge patient. Data interpreted: Pulse oximetry: on room air is 98 %. Interpretation: normal. Counseling: I had a detailed discussion with the patient and/or guardian regarding: the historical points, exam findings, and any diagnostic results supporting the discharge/admit diagnosis, lab results, the need for outpatient follow up, a family practitioner, to return to the emergency department if symptoms worsen or persist or if there are any questions or concerns that arise at home. 05/29 08:06 Order name: COVID-19/FLU A+B (Document "Date of Onset" if Symptomatic) ll1 05/29 08:07 Order name: COVID-19/FLU A+B; Complete Time: 09:59 EDMS 05/29 09:26 Order name: Urine Dipstick-Ancillary; Complete Time: 09:28 EDMS 05/29 09:27 Order name: Urine --Ancillary (enter results) bd 05/29 09:28 Order name: Urine --Ancillary EDMS Administered Medications: No medications were administered Disposition: 17:10 Co-signature as Attending Physician, Jared Burris MD I agree with the assessment and rn plan of care. Attestation: The patient's history, exam findings, diagnostics, and a summary of any interventions or procedures was reviewed in detail with Mik JIMENEZ. Disposition Summary: 05/29/21 10:02 Discharge Ordered Location: Home jr8 Problem: new jr8 Symptoms: have improved jr8 Condition: Stable jr8 Diagnosis - Acute upper respiratory infection, unspecified jr8 - Nausea jr8 Followup: jr8 - With: Private Physician - When: 5 - 6 days - Reason: Recheck today's complaints, Continuance of care, Re-evaluation by your physician Discharge Instructions: - Discharge Summary Sheet jr8 - Nausea, Adult jr8 - Upper Respiratory Infection, Adult jr8 Forms: - Medication Reconciliation Form jr8 - Thank You Letter jr8 - Antibiotic Education jr8 - Prescription Opioid Use jr8 - Work release form ll1 Prescriptions: - Prednisone 20 mg Oral Tablet - take 1 tablet by ORAL route once daily for 5 days; 5 tablet; Refills: 0, jr8 Product Selection Permitted - Zofran 4 mg Oral Tablet - take 1 tablet by ORAL route every 12 hours As needed; 20 tablet; Refills: 0, jr8 Product Selection Permitted Signatures: Dispatcher [employer] Jared Rodriguez MD MD rn Mik Miller PA PA jr8 Kailey Carlos RN RN ll1
[2021-05-29 10:43] VITALS: BP 168/87; TEMP 98.8; O2SAT 98
[2021-05-29 14:04] LABS: Urine Specific Gravity/Preg 1.025 (1.005-1.030)
== END 2021-05-29 10:17 | disposition home or self-care (01) ==
LOC: ER 07:38
DX: J06.9 Acute upper respiratory infection, unspecified (principal); R11.0 Nausea; Z20.822 Contact with and (suspected) exposure to COVID-19
CPT/HCPCS: 81025; 81003; 0240U; 99282